=== PATIENT | female | born 1960 | race Caucasian/White ===

== ENCOUNTER 2025-01-25 08:38 | Day surgery (SDC) | payer OTHER ==
[2025-01-24 12:16] VITALS: BMI 32.2
[2025-01-25 09:04] VITALS: RESP 18
[2025-01-25 11:15] VITALS: TEMP 97.6
[2025-01-25 12:39] VITALS: BP 106/75; PULSE 83
== END 2025-01-25 11:38 | disposition home or self-care (01) ==
LOC: FASU-ENDO 08:38
PROVIDERS: ATTEND Internal Medicine Gastroenterology
PROC: 0DB68ZX Excision of Stomach, Via Natural or Artificial Opening Endoscopic, Diagnostic (ICD-10-PCS; 2025-01-25)
PROC: 0DB98ZX Excision of Duodenum, Via Natural or Artificial Opening Endoscopic, Diagnostic (ICD-10-PCS; principal; 2025-01-25 10:43)
DX: K31.7 Polyp of stomach and duodenum (principal); K92.0 Hematemesis; K31.89 Other diseases of stomach and duodenum
CPT/HCPCS: 88305-TC; 88342-TC